=== PATIENT | female | born 1980 | race Caucasian/White ===

== ENCOUNTER 2018-12-29 10:25 | Emergency (ER) | payer BC, OTHER ==
[~2018-12-29] VITALS: Ht 172.7 cm; Wt 158.8 kg
--- NOTE | 2018-12-29 10:28 | NUR ---
PT AMBULATED TO ER BED 09
[2018-12-29 10:35] VITALS: BP 116/73
--- NOTE | 2018-12-29 10:40 | NUR ---
BIB SELF C/O CHEST PAIN PT STATES 6/10 SHARP PAIN WITH TINGLING TO RIGHT LOWER ARM THIS MORNING, . AAO X 4, FULL CLEAR SPEECH, FACIAL SYMMETRY, MUSCLE STRENGTH EQUAL IN BILATERAL UPPER AND LOWER EXTREMITIES. DENIES N/V/D, SOB. NON DIAPHORETIC. PT PLACED ON FULL MONITOR, NSR. ON LOW BED POSITION, LOCKED. BED RAILS UP X 1. HOB UP. WILL CONTINUE TO MONITOR.
--- NOTE | 2018-12-29 10:50 | NUR ---
edmd at bedside performing mse
--- NOTE | 2018-12-29 11:00 | NUR ---
Pt laying on bed in supine position, eyes open, respirations e/u, on full monitor bed in low position, locked, no identified requests at this time. Will continue to monitor closely.
[2018-12-29] MEDS ORDERED: KETOROLAC 30 MG/ML VIAL IVP ONE (12:00)
[2018-12-29] MEDS ORDERED: LORazepam 2 MG/ML VIAL IVP ONE (12:00)
[2018-12-29] MEDS ORDERED: LORazepam 1 MG TAB PO ONE (12:25)
[2018-12-29] MEDS ORDERED: KETOROLAC 30 MG/ML VIAL IM ONE (12:25)
[2018-12-29 12:50] LABS: BASOPHILS # (AUTO) 0.1 K/uL (0.00-0.22); BASOPHILS % (AUTO) 0.8 % (0.0-2.0); EOSINOPHILS # (AUTO) 0.1 K/uL (0-0.4); HEMATOCRIT 38.4 % (36-48); HEMOGLOBIN 13.1 g/dL (12.0-16.0); LYMPHOCYTES # (AUTO) 2.7 K/uL (2.5-16.5); MEAN CORPUSCULAR HEMOGLOBIN 30 pg (27-31); MEAN CORPUSCULAR HGB CONC 34 g/dL (33-37); MEAN CORPUSCULAR VOLUME 89.3 fL (80-94); MONOCYTES # (AUTO) 0.4 K/uL (0.8-1.0); MONOCYTES % (AUTO) 5.6 % (1.7-9.3); NEUTROPHILS # (AUTO) 4.1 K/uL (1.8-7.7); NEUTROPHILS % (AUTO) 55.6 % (42.2-75.2); PLATELET COUNT (AUTO) 217 K/uL (140-450); RED CELL DISTRIBUTION WIDTH 12.8 % (11.6-13.7); WHITE BLOOD COUNT (AUTO) 7.4 K/uL (4.8-10.8)
--- NOTE | 2018-12-29 13:00 | NUR ---
MEDS WERE CHANGED TO PO, DIDN'T START IV.
[2018-12-29 13:08] LABS: PROTHROMBIN TIME 9.3 secs (10.8-13.4)
[2018-12-29 13:42] LABS: APPEARANCE,URINE SL CLOUDY (CLEAR); BILIRUBIN,URINE 1+ (NEGATIVE); BLOOD, URINE 2+ (NEGATIVE); COLOR,URINE YELLOW (YELLOW); LEUKOCYTE ESTERASE ,URINE NEGATIVE (NEGATIVE); NITRITE, URINE NEGATIVE (NEGATIVE); PH,URINE 5.5 (5.0-9.0); UGLUCOSE NEGATIVE (NEGATIVE)
[2018-12-29 13:48] LABS: RBC,URINE 0-5 /HPF (0-5); WBC,URINE 0-5 /HPF (0-5)
[2018-12-29 14:43] VITALS: BP 121/84
--- NOTE | 2018-12-29 14:43 | NUR ---
Patient discharged with v/s stable. Written and verbal after care instructions given and explained. Patient alert, oriented and verbalized understanding of instructions. Ambulatory with steady gait. All questions addressed prior to discharge. ID band removed. Patient advised to follow up with PMD. Rx of Naprosyn, Vistaril given. Patient educated on indication of medication including possible reaction and side effects. Opportunity to ask questions provided and answered.
[2018-12-29 18:56] LABS: ALBUMIN 3.6 g/dL (3.4-5.0); ANION GAP 18.8 (8-16); CREATININE 0.7 mg/dL (0.6-1.3); POTASSIUM 3.8 mmol/L (3.5-5.1); TOTAL BILIRUBIN 0.3 mg/dL (0.0-1.0)
== END 2018-12-29 14:43 | disposition home or self-care (01) ==
LOC: MED 10:25
DX: F41.0 Panic disorder [episodic paroxysmal anxiety] (principal); J45.909 Unspecified asthma, uncomplicated; R79.0 Abnormal level of blood mineral; Z90.49 Acquired absence of other specified parts of digestive tract
CPT/HCPCS: 71045; 80053; 81001; 81025; 83735; 83880; 84484; 85025; 85379; 85610; 85730; 93005; 96372; 99284; J1885; Q0092; 36415